=== PATIENT | female | born 1985 ===

== ENCOUNTER 2018-02-02 17:35 | Emergency (ER) | payer BC, SELFPAY ==
[2018-02-02 17:40] VITALS: BP 130/90; PULSE 78; RESP 20; TEMP 36.4; O2SAT 100
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
[2018-02-02] MEDS: Acetaminophen 500 MG TAB 1000 MG PO (18:25)
[2018-02-02] MEDS: Ibuprofen 600 MG TAB PO (18:25)
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
[2018-02-02] MEDS: Cyclobenzaprine 10 MG TAB 30 MG PO (20:42)
== END 2018-02-02 20:44 | disposition home or self-care (01) ==
PROVIDERS: Emergency Provider Emergency Medicine
DX: S00.83XA Contusion of other part of head, initial encounter (principal); S00.81XA Abrasion of other part of head, initial encounter; V18.0XXA Pedal cycle driver injured in noncollision transport accident in nontraffic accident, initial encounter; Y93.55 Activity, bike riding
CPT/HCPCS: 81025; 99284; 70486